=== PATIENT | female | born 1965 | race African-American/Black ===

== ENCOUNTER 2018-09-10 15:02 | Emergency (ER) | payer MEDICAID ==
[~2018-09-10] VITALS: Ht 162.6 cm; Wt 86.0 kg
[2018-09-10] MEDS ORDERED: KETOROLAC 60MG/2ML VIAL IM ONE (18:00)
[2018-09-10] MEDS ORDERED: SILVER SULFADIAZINE 1% CREAM 25GM TOP ONE (18:00)
[2018-09-10 18:37] VITALS: BP 155/60
== END 2018-09-10 18:38 | disposition home or self-care (01) ==
LOC: ER 15:02
DX: T23.102A Burn of first degree of left hand, unspecified site, initial encounter (principal); T22.112A Burn of first degree of left forearm, initial encounter; T31.0 Burns involving less than 10% of body surface; X13.1XXA Other contact with steam and other hot vapors, initial encounter; Y93.89 Activity, other specified; Y92.89 Other specified places as the place of occurrence of the external cause; Y99.8 Other external cause status
CPT/HCPCS: 16000; 96372; 99284; J1885